=== PATIENT | female | born 1995 | race African-American/Black ===

== ENCOUNTER 2017-02-28 18:13 | Emergency (ER) | payer MEDICAID ==
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
--- NOTE | 2017-02-28 22:05 | ER Document Report ---
ED GI/ - General Chief Complaint: Abdominal Pain Stated Complaint: ABDOMINAL PAIN Time Seen by Provider: 02/28/17 19:55 Mode of Arrival: Ambulatory Notes: The patient is a 22-year-old female who presents with pelvic pain and discharge with 2 weeks of vaginal bleeding. She is concerned that she is . She also noticed lesions around her vagina and rectum over the past 2 weeks. She has had unprotected intercourse. Patient denies abdominal pain, nausea, vomiting, diarrhea, constipation, fevers or flank pain. TRAVEL OUTSIDE OF THE [place] IN LAST 30 DAYS: No - Related Data Allergies/Adverse Reactions: No Known Allergies Allergy (Unverified 02/28/17 18:17) Past Medical History - General Information source: Patient - Social History Smoking Status: Never Smoker Frequency of alcohol use: None Drug Abuse: None Family History: Reviewed & Not Pertinent Patient has suicidal ideation: No Patient has homicidal ideation: No Neurological Medical History: Reports: Hx Migraine Renal/ Medical History: Denies: Hx Peritoneal Dialysis Review of Systems - Review of Systems Notes: REVIEW OF SYSTEMS: CONSTITUTIONAL: -fevers, -chills EENT: -eye pain, -difficulty swallowing, -nasal congestion CARDIOVASCULAR:-chest pain, -syncope. RESPIRATORY: -cough, -SOB GASTROINTESTINAL: -abdominal pain, - nausea, -vomiting, -diarrhea GENITOURINARY: -dysuria, -hematuria, +pelvic pain and discharge MUSCULOSKELETAL: -back pain, -neck pain SKIN: -rash or skin lesions. HEMATOLOGIC: -easy bruising or bleeding. LYMPHATIC: -swollen, enlarged glands. NEUROLOGICAL: -altered mental status or loss of consciousness, -headache, - neurologic symptoms PSYCHIATRIC: -anxiety, -depression. ALL OTHER SYSTEMS REVIEWED AND NEGATIVE. Physical Exam - Vital signs Vitals: Temp Pulse Resp BP Pulse Ox 98.7 F 101 H 16 112/69 100 02/28/17 18:20 02/28/17 18:20 02/28/17 18:20 02/28/17 18:20 02/28/17 18:20 - Notes Notes: PHYSICAL EXAMINATION: GENERAL: Well-appearing, well-nourished and in no acute distress. HEAD: Atraumatic, normocephalic. EYES: Pupils equal round and reactive to light, extraocular movements intact, sclera anicteric, conjunctiva are normal. ENT: nares patent, oropharynx clear without exudates. Moist mucous membranes. NECK: Normal range of motion, supple without lymphadenopathy LUNGS: Breath sounds clear to auscultation bilaterally and equal. No wheezes rales or rhonchi. HEART: Regular rate and rhythm without murmurs ABDOMEN: Soft, nontender, normoactive bowel sounds. No guarding, no rebound. No masses appreciated. : Vesicles on labia, in vagina and around rectum. Small amount of yellow discharge. non-tender adnexa and no masses. EXTREMITIES: Normal range of motion, no pitting or edema. No cyanosis. NEUROLOGICAL: Cranial nerves grossly intact. Normal speech, normal gait. Normal sensory and motor exams. PSYCH: Normal mood, normal affect. SKIN: Warm, Dry, normal turgor, no rashes or lesions noted. Course - Re-evaluation Re-evalutation: Patient with evidence of Trichomonas and UTI on urinalysis. She also has evidence of herpes on physical exam, but no evidence of PID or TOA. Instructed patient about always using condoms and to let her partners know that they need to follow with the health department for treatment. Given strict return precautions and she understands. - Vital Signs Vital signs: Temp Pulse Resp BP Pulse Ox 98.4 F 110 H 18 111/71 100 02/28/17 23:11 02/28/17 23:11 02/28/17 23:11 02/28/17 23:11 02/28/17 23:11 - Laboratory Laboratory results interpreted by me: 02/28/17 21:50 Urine Protein 100 H Urine Ketones 80 H Urine Blood MODERATE H Ur Leukocyte Esterase LARGE H Urine Ascorbic Acid 20 H Discharge - Discharge Clinical Impression: Herpes, Trichomonas vaginitis UTI (urinary tract infection) Qualifiers: Urinary tract infection type: acute cystitis Hematuria presence: with hematuria Qualified Code(s): N30.01 - Acute cystitis with hematuria Condition: Stable Disposition: HOME, SELF-CARE Additional Instructions: Take the full course of antibiotics and antivirals to help treat trichomonas, herpes and your UTI. You must follow-up at the health department for further evaluation and treatment. You must also tell your partners to go to the health department to get treatment. Always use condoms. Herpes Simplex You have been diagnosed as having a herpes virus infection. The herpes ( "cold sore") virus usually infects the areas around the mouth. However, it can cause infection on any skin surface. It's particularly dangerous if infection occurs in the eye. On the initial infection, herpes blisters erupt over a large area. There is usually fever and aching. This infection takes about 14 days to resolve. After the initial infection, herpes sores can erupt on small areas (usually the lips), then heal in about a week. Sunburn, fever, local irritation, or even emotions can provoke a "fever blister" attack of herpes. Initial herpes infections can be treated with medication if severe. Subsequent attacks are usually given only local care to reduce symptoms; however , the physician may decide to prescribe anti-viral medication if your case warrants it. Call the doctor if you are worsening in any way. URINARY TRACT INFECTION: Your evaluation indicates that you have a urinary tract infection. This is due to germs growing in the bladder. This is a common problem. This infection usually responds quickly to antibiotics. Your antibiotic should be taken exactly as prescribed. Drink plenty of fluids -- three to four quarts a day. Occasionally, a bladder anesthetic will be prescribed to help stop the feeling of urgency until the antibiotic has a chance to clear the infection. This may cause your urine to be dark orange. Certain urine infections require a culture. If the doctor obtained a culture, the results will be back in two days. You should call to see if a change in treatment is needed. A repeat urinalysis after you finish treatment is often recommended. The physician will let you know if further testing is required. Call the doctor if you develop fever, chills, flank pain, inability to urinate, or blood in the urine. ANTIBIOTIC THERAPY: You have been given an antibiotic prescription. It's important that you take all the medication, unless instructed otherwise by your physician. Failure to complete the entire course can result in relapse of your condition. Common side effects of antibiotics include nausea, intestinal cramping, or diarrhea. Women may develop vaginal yeast infections, and babies can get yeast (thrush) in the mouth following the use of antibiotics. Contact your physician if you develop significant side effects from this medication. Allergy to this antibiotic can result in hives, wheezing, faintness, or itching. If symptoms of allergy occur, stop the medication and call the doctor. NITROFURANTOIN (MACRODANTIN, MACROBID): You have received a prescription for nitrofurantoin (Macrodantin). This antibiotic is used for urinary tract infections. Women who are or nursing should notify the physician before taking this medicine. If you have ever had a problem caused by this medication in the past, be sure the physician is aware of it. Common side effects of this medicine include nausea, vomiting, or decreased appetite. Notify your physician if these side effects become severe. Immediately stop this medicine and call the physician if you develop cough , shortness of breath, chest pain, weakness, jaundice (yellow color of the skin and whites of the eyes), or a skin rash. FOLLOW-UP CARE: If you have been referred to a physician for follow-up care, call the physician s office for an appointment as you were instructed or within the next two days. If you experience worsening or a significant change in your symptoms, notify the physician immediately or return to the Emergency Department at any time for re-evaluation. Prescriptions: Metronidazole [Flagyl 500 mg Tablet] 500 mg PO Q8H #21 tablet Nitrofurantoin/Nitrofuran Mac [Macrobid 100 mg Capsule] 1 tab PO BID #10 capsule Valacyclovir HCl [Valtrex 500 Mg Tablet] 500 mg PO BID #20 tablet Referrals: LINCOLN SURESH MD [Primary Care Provider] - Follow up as needed [facility] [NO LOCAL MD] - Follow up as needed
[2017-02-28 22:42] LABS: APPEARANCE,URINE CLOUDY; BILIRUBIN,URINE NEGATIVE (NEGATIVE); GLUCOSE, URINE NEGATIVE (NEGATIVE); KETONES,URINE 80 mg/dL (NEGATIVE); LEUKOCYTE ESTERASE,URINE LARGE (NEGATIVE); NITRITE,URINE NEGATIVE (NEGATIVE); PROTEIN,URINE 100 mg/dL (NEGATIVE); URINE SPECIFIC GRAVITY 1.029; UROBILINOGEN,URINE NEGATIVE mg/dL (<2.0)
[2017-02-28 22:46] LABS: BACTERIA,URINE 3+ /HPF; RBC,URINE 30-50 /HPF; WBC,URINE 50-100 /HPF
[2017-02-28 22:47] LABS: TRICHOMONAS,URINE PRESENT
[2017-02-28] MEDS ORDERED: NITROFURANTOIN MONOHYD/M-CRYST 100 MG CAPSULE PO ONE (22:53)
[2017-02-28] MEDS ORDERED: METRONIDAZOLE 500 MG TABLET PO ONE (22:53)
[2017-02-28 23:12] VITALS: BP 111/71
== END 2017-03-01 00:15 | disposition home or self-care (01) ==
LOC: ER 18:13
DX: N30.01 Acute cystitis with hematuria (principal); A59.01 Trichomonal vulvovaginitis; B00.9 Herpesviral infection, unspecified; R10.2 Pelvic and perineal pain; N93.9 Abnormal uterine and vaginal bleeding, unspecified
CPT/HCPCS: 81001; 81025; 87491; 87591; 99283

== ENCOUNTER 2019-09-15 10:20 | Emergency (ER) | payer OTHER ==
[2019-09-15 10:27] VITALS: BP 102/66
[2019-09-15] MEDS ORDERED: IBUPROFEN 600 MG TABLET PO ONE (10:45)
[2019-09-15] MEDS ORDERED: ACETAMINOPHEN 325 MG TABLET PO ONE (10:45)
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
[2019-09-15] MEDS ORDERED: IBUPROFEN 600 MG TABLET ONE (10:54)
[2019-09-15] MEDS ORDERED: ACETAMINOPHEN 325 MG TABLET ONE (10:54)
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
== END 2019-09-15 12:11 | disposition home or self-care (01) ==
LOC: ER 10:20
DX: M54.5 Low back pain (principal); R07.89 Other chest pain; V87.7XXA Person injured in collision between other specified motor vehicles (traffic), initial encounter
CPT/HCPCS: 99283